=== PATIENT | female | born 1990 | race African-American/Black ===

== ENCOUNTER 2017-07-13 07:06 | Outpatient (CLI) | payer BC ==
--- NOTE | 2017-07-13 08:05 | Cat Scan Report ---
CT scan of abdomen and pelvis without IV contrast: History: Right flank pain. Findings: Normal lung bases. No pleural or pericardial effusion. Normal liver spleen pancreas and gallbladder. Bilateral normal adrenals. There is 2 mm nonobstructing calculus identified at right kidney. No calculus along the course of ureter. Decompressed bladder appears unremarkable. No free intraperitoneal fluid or air. No evidence of adenopathy. Gaseous colon with moderate volume stool in colon. No bowel distention. Normal appendix. No evidence of diverticulitis. Impression: Nonobstructing calculus right kidney.
== END 2017-07-13 07:07 | disposition home or self-care (01) ==
LOC: CT 07:06
PROVIDERS: ATTEND Internal Medicine
DX: N20.0 Calculus of kidney (principal); N32.89 Other specified disorders of bladder
CPT/HCPCS: 74176

== ENCOUNTER 2017-07-19 17:51 | Outpatient (CLI) | payer BC ==
--- NOTE | 2017-07-19 21:34 | XRay Report ---
FINAL REPORT EXAM: XR ABDOMEN 1V AP HISTORY: abd pain checking for kidney stone TECHNIQUE: KUB was performed Comparison: None FINDINGS: There is in the lung gated calcific density projecting over upper left psoas muscle at the level of the L2/L3 lateral margin measuring 1.5 x 0.3 centimeters. There is moderate fecal retention. There are no other suspicious calcifications identified. Lung bases are clear. The location of the stone is unknown. IMPRESSION: 1.5 x 0.3 centimeter calcific density projects between the left L2 and L3 transverse processes at the lateral psoas margin. Moderate fecal retention. No other stone definitely identified. Stone location is unknown. No organomegaly. Clear lung bases.
== END 2017-07-19 17:52 | disposition home or self-care (01) ==
LOC: XRAY 17:51
PROVIDERS: ATTEND Urology
DX: K59.00 Constipation, unspecified (principal)
CPT/HCPCS: 74018

== ENCOUNTER 2017-11-19 11:04 | Emergency (ER) | payer BC, OTHER ==
[2017-11-19 12:25] LABS: HCG Qualitative,Urine Negative (Negative)
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
[2017-11-19] MEDS ORDERED: MOTRIN PO ONE (13:14)
--- NOTE | 2017-11-19 14:47 | XRay Report ---
LEFT KNEE, 3 views: History: Left knee pain. The bony architecture is intact without evidence of fracture or dislocation. No significant soft tissue abnormality is seen. IMPRESSION: Normal left knee.
--- NOTE | 2017-11-19 14:47 | XRay Report ---
RIGHT HIP, 2 views: History: Right hip pain. The bony architecture is intact without evidence of fracture or dislocation. No significant soft tissue abnormality is seen. IMPRESSION: No evidence for acute injury.
--- NOTE | 2017-11-19 14:48 | XRay Report ---
LEFT WRIST, 3 views: HISTORY: Pain. Routine views demonstrate the carpal bones to be well mineralized with well preserved bony mineralization and interosseous joint spaces. The carpal and adjacent articular bones have normal contours. The surrounding soft tissues are unremarkable. IMPRESSION: Normal study.
[2017-11-19 15:14] VITALS: BP 118/70
== END 2017-11-19 15:11 | disposition home or self-care (01) ==
LOC: ED 11:04
DX: S66.912A Strain of unspecified muscle, fascia and tendon at wrist and hand level, left hand, initial encounter (principal); S86.912A Strain of unspecified muscle(s) and tendon(s) at lower leg level, left leg, initial encounter; S76.011A Strain of muscle, fascia and tendon of right hip, initial encounter; S00.511A Abrasion of lip, initial encounter; V89.2XXA Person injured in unspecified motor-vehicle accident, traffic, initial encounter; Y93.89 Activity, other specified; Y92.89 Other specified places as the place of occurrence of the external cause; Y99.8 Other external cause status
CPT/HCPCS: 81025

== ENCOUNTER 2021-12-16 06:34 | Emergency (ER) | payer BC, OTHER ==
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
[2021-12-16] MEDS ORDERED: ACETAMINOPHEN 325 MG TAB PO ONE (11:27)
[2021-12-16] MEDS ORDERED: IBUPROFEN 600 MG TAB PO ONE (11:27)
[2021-12-16 11:58] VITALS: BP 104/76
== END 2021-12-16 14:30 | disposition home or self-care (01) ==
LOC: ED 06:34
DX: S16.1XXA Strain of muscle, fascia and tendon at neck level, initial encounter (principal); V89.2XXA Person injured in unspecified motor-vehicle accident, traffic, initial encounter; Y93.89 Activity, other specified; Y92.89 Other specified places as the place of occurrence of the external cause; Y99.8 Other external cause status
CPT/HCPCS: 99282